=== PATIENT | female | born 1980 | race Caucasian/White ===

== ENCOUNTER 2019-09-29 19:44 | Outpatient (CLI) | payer SELFPAY ==
--- NOTE | 2019-09-29 20:45 | RAD ---
EXAM: RIGHT FOREARM TWO VIEWS: History: Pain in right upper extremity, injury from a fall yesterday. FINDINGS: There is a healed bending type fracture of the mid ulnar shaft as well as some bending of the mid rad ial shaft in the ulnar direction. No acute fracture or dislocation. IMPRESSION: Healed ulnar shaft fracture with minimal bending of the radial shaft, both of which are in the ulnar direction. No acute fracture or dislocation. POS: RRE
== END 2019-09-29 19:45 | disposition home or self-care (01) ==
LOC: SCSRAD 19:44
PROVIDERS: ATTEND Family Medicine
DX: M79.601 Pain in right arm (principal); Z87.81 Personal history of (healed) traumatic fracture

== ENCOUNTER 2020-03-30 16:57 | Outpatient (CLI) | payer OTHER ==
--- NOTE | 2020-03-30 17:27 | RAD ---
Exam:4 views left HISTORY: Pain. No known injury. Bruising. COMPARISON: None FINDINGS: No joint effusion. Preserved joint spaces. No dislocation or fracture. IMPRESSION: No fracture or dislocation.
== END 2020-03-30 16:58 | disposition home or self-care (01) ==
LOC: SCSRAD 16:57
PROVIDERS: ATTEND Student in an Organized Health Care Education/Training Program
DX: M25.522 Pain in left elbow (principal)

== ENCOUNTER 2021-03-17 | Outpatient (CLI) | payer BC | END 2021-03-17 12:56 | disposition home or self-care (01) | DX: G56.12 Other lesions of median nerve, left upper limb (principal) ==

== ENCOUNTER 2021-06-05 19:30 | Outpatient (CLI) | payer BC | END 2021-06-05 19:31 | disposition home or self-care (01) | LOC: SLEEPLAB 19:30 | PROVIDERS: ATTEND Family Medicine | DX: G47.9 Sleep disorder, unspecified (principal); R53.83 Other fatigue; G31.84 Mild cognitive impairment of uncertain or unknown etiology; G47.00 Insomnia, unspecified; G47.11 Idiopathic hypersomnia with long sleep time | CPT/HCPCS: 95810 ==

== ENCOUNTER 2022-01-16 19:30 | Outpatient (CLI) | payer BC | END 2022-01-16 19:31 | disposition home or self-care (01) | LOC: SLEEPLAB 19:30 | PROVIDERS: ATTEND Family Medicine | DX: G47.9 Sleep disorder, unspecified (principal); R53.83 Other fatigue; G31.84 Mild cognitive impairment of uncertain or unknown etiology; G47.00 Insomnia, unspecified; R06.83 Snoring; G47.10 Hypersomnia, unspecified; F32.9 Major depressive disorder, single episode, unspecified; F98.8 Other specified behavioral and emotional disorders with onset usually occurring in childhood and adolescence; G47.11 Idiopathic hypersomnia with long sleep time | CPT/HCPCS: 95810 ==

== ENCOUNTER 2022-01-17 09:00 | Outpatient (CLI) | payer BC | END 2022-01-17 09:01 | disposition home or self-care (01) | LOC: SLEEPLAB 09:00 | PROVIDERS: ATTEND Family Medicine | DX: G47.10 Hypersomnia, unspecified (principal); F32.A Depression, unspecified; G47.00 Insomnia, unspecified; R51.9 Headache, unspecified; R40.0 Somnolence | CPT/HCPCS: 95805 ==